=== PATIENT | female | born 1980 | race Caucasian/White ===

== ENCOUNTER 2016-03-26 11:21 | Emergency (ER) | payer SELFPAY ==
[2016-03-26 11:35] VITALS: TEMP 98.4; BMI 33.5
[2016-03-26] MEDS ORDERED: SODIUM CHLORIDE 0.9% 3 ML FLUSH FLUSH PRN (11:51)
[2016-03-26] MEDS ORDERED: METHYLPREDNISOLONE 125 MG/2 ML VIAL IV ONE (12:08)
[2016-03-26] MEDS ORDERED: LORAZEPAM 1 MG TAB PO ONE (12:08)
[2016-03-26] MEDS ORDERED: Albuterol/Ipratropium Neb 3 ML NEB NEB ONE (12:08)
--- NOTE | 2016-03-26 12:11 | EDPRACDOC ---
- General Information Chief Complaint: Dyspnea/Resp distress Stated Complaint: SHORTNESS OF BREATH Time Seen by Provider: 03/26/16 11:51 Information Source: Patient Home Medications: Home Medications Emtricitabine/Tenofovir [Truvada 200 mg-300 mg Tablet] 1 tab PO DAILY 01/09/15 Ritonavir [Norvir] 100 mg PO QHS 01/09/15 Atazanavir Sulfate [Reyataz] 300 mg PO DAILY 10/24/15 Gabapentin [Neurontin] 400 mg PO Q6H #30 capsule 03/04/16 Quetiapine Fumarate [Seroquel] 400 mg PO QHS #7 tablet 03/04/16 Azithromycin [Zithromax] 0 mg PO DAILY #6 tablet 03/26/16 Gabapentin 400 mg PO QID #20 cap 03/26/16 Prednisone [Sterapred Ds] 10 mg PO DIR #21 pack 03/26/16 Quetiapine Fumarate [Seroquel] 400 mg PO QHS #7 tablet 03/26/16 Allergies/Adverse Reactions: Allergies Allergy/AdvReac Type Severity Reaction Status Date / Time No Known Allergies Allergy Verified 03/26/16 11:29 - History of Present Illness Onset: 2-3 DAYS HPI: PT STATES COUGH CONGESTION SOB FEELS SHAKY ALL OVER STATES STARTED LAT NIGHT AND FEELS LIKE SHE IS HAVING A PANIC ATTACK. PT ALSO STATES SHE IS OUT OF HER SEROQUEL AND GABAPENTIN DUE TO FINANCIAL REASONS. PT ALSO STATES SHE IS OUT OF HER GABAPENTIN AND SEROQUEL. Shortness of Breath: Mild Relevant History: Reports: Other (CHRONIC BRONCHITIS) Cough: Reports: Productive, White, Yellow Rhinorrhea: Reports: None Ear Symptoms: Reports: None SOB Worsens with: Reports: Anxiety, Coughing SOB Improves with: Reports: Nothing Associated Signs and symptoms: Reports: Cough, Other (CONGESTION SOB ANXIOUS) - Treatment Prior to ED Arrival Reported Medications/Treatment [facility] Treatment BLS ED Past Medical History - History Reviewed Yes Nurses notes reviewed and agree except as marked Travel Outside of [place] in the Last 3 Months?: No - Patient Medical History Respiratory History: Reports: Chronic Bronchitis, Pneumonia (1 MONTH AGO (PCP)) GI/ History: Reports: Kidney Stones, Pancreatitis Psychological History: Reports: Anxiety, Schizophrenia, Bipolar Disorder. Denies: Depression Systemic History: Reports: HIV (ON MEDS SINCE 11/2014). Denies: Anemia Additional Past Medical History: HIV Surgical History: Reports: Cholecystectomy, Tonsillectomy/Adnoidectomy, Other ( Left ankle orthopedic surgery.) - Family Medical History Reports: Diabetes (BROTHER), Cancer (4 AUNTS). Denies: Hypertension, Stroke, Cardiac Disorders - Social Medical History Smoking Status: Heavy tobacco smoker (5 or more cigarettes/day or daily pipe/ cigar) ETOH: None Substance Abuse: None Lives With: Other Lives In: Home EDM Review of Systems - Review of Systems ROS Negative Except as Marked: Yes All systems reviewed and were negative except as marked Constitutional: No Symptoms Reported. negative: Fever, Chills, Weakness, Fatigue, Loss of Appetite Eyes: No Symptoms Reported. negative: Redness, Blurred Vision, Double Vision, Discharge, Pain, Light Sensitive, Photophobia Ears: No Symptoms Reported. negative: Pain, Hearing Loss, Drainage, Ear Pulling Throat: No Symptoms Reported. negative: Pain, Swelling Nose: No Symptoms Reported. negative: Congestion, Bleeding, Discharge, Injection, Swelling, Deformity, Ecchymosis, Tender, Abrasion, Laceration Mouth: No Symptoms Reported. negative: Pain, Drooling Respiratory: Cough, Shortness of Breath, Sputum. negative: Barky Cough, Brassy Cough, Hemoptysis, Wheezing Cardiovascular: No Symptoms Reported. negative: Chest Pain, Palpitations, Syncope, Edema, Orthopnea, PND, Skin Mottling, Cyanosis Gastrointestinal: No Symptoms Reported. negative: Pain, Constipation, Nausea, Vomiting, Diarrhea, Melena, Formula Intolerance Genitourinary: No Symptoms Reported. negative: Dysuria, Hematuria, Frequency, Discharge, Bleeding, Testicular Pain, Neurological: No Symptoms Reported. negative: Headache, Dizziness, Seizure, Numbness, Weakness, Speech Difficulty, Gait Difficulty Musculoskeletal: No Symptoms Reported. negative: Neck, Chestwall, Ribs, Back, Shoulder, Arm, Elbow, Forearm, Wrist, Hand, Pelvis, Hip, Femur, Knee, Leg, Ankle , Foot Integumentary: No Symptoms Reported. negative: Itching, Rash, Bruising, Wound Allergic/Immunologic: No Symptoms Reported. negative: Hives, Itching Hematologic: No Symptoms Reported. negative: Lymphadenopathy, Easy Bruising, Easy Bleeding Endocrine: No Symptoms Reported. negative: Weight Gain, Weight Loss Psychiatric: Anxiety. negative: Depression, Hallucinations, Insomnia, Suicidal - Physical Exam Constitutional: No apparent distress, Alert (Awake) Oriented to: Time, Person, Place Last recorded Vital Signs: Last Vital Signs Temp 98.4 F 03/26/16 11:30 Pulse 93 03/26/16 11:30 Resp 18 03/26/16 11:30 BP 123/65 03/26/16 11:30 Pulse Ox 92 03/26/16 11:30 Oxygen Pulse Oxygen Saturation 92 O2 Device Room Air Oxygen Flow Rate Fraction of Inspired Oxygen ( FIO2) - HEENT Head: Normal ( normocephalic) Eye Exam: Normal (PERRL, EOMI, Sclera white) Oropharynx: Normal (Pharynx:Moist without exudate,Gums-no swelling) Tympanic Membrane: Normal ENT EAC: Normal TMJ: Normal Nose: No Symptoms Reported (septum midline) Neck: Normal (FROM, trachea at midline) - Respiratory/Cardiovascular Respiratory: Rhonchi, Wheezes Cardiovascular: Normal (RRR without murmur, gallop or rub) - GI Auscultation: Normal (NABS) Palpation: Normal (Soft,No rebound or guarding, non distended) Tenderness: Non tender Eduardo's Sign: Negative - Bladder: Normal - Musculoskeletal Back: Normal (Non-Tender) Extremities: Normal (Normal tone, Pulses 2+ No cyanosis or edema, FROM) - Integumentary Skin: Normal, Warm, Dry Lymphatics: Normal (no adenopathy) - Neurologic Memory Impaired: Normal Motor Function: Normal (Normal tone, Pulses 2+ No cyanosis or edema, FROM) Cranial Nerve: Normal (CN II-X11 intact sensation, strength 5/5) Cerebellar: Normal Mood Description: Normal Perception: Normal ED SOB MDM - Differential Diagnosis Differential Diagnosis: Asthma, Pnuemonia, Other (ACUTE EXACERBATION OF CHRONIC BRONCHITIS) - Re-evaluation Re-evaluation 1 Re-evaluation Time: 13:52 (PT CURRENTLY LAYING IN BED ON STOMACH PLAYING ON CELL PHONE, APPEARS TO BE FEELING BETTER IN NAD. ) Re-evaluation 2 Re-evaluation Time: 14:01 (PT STATES FEELING BETTER AND IS BREATHING BETTER. ) - Results Result Diagrams: 03/26/16 12:12 03/26/16 12:12 - Diagnostic Imaging CXR Image interpreted by: Radiologist Diagnostic Imaging Comments: IMPRESSION: No active cardiopulmonary disease. - Additional Information Additional Information: OLD LABS REVIEWED WBC CHRONICALLY LOW AND BANDEMIA APPEARS TO BE CHRONIC WELL. Decision Time to Discharge: 14:01 - Departure Disposition: Home Condition: Stable Final Diagnosis: Acute exacerbation of chronic bronchitis, Medication refill, Substance abuse Instructions: Chronic Bronchitis (ED), Medicine Refill (ED), Polysubstance Abuse (ED) Education/Counseling Given To: Patient Education/Counseling Given Regarding: Diagnosis, Treatment, Prognosis, Follow Up Referrals: None,No Provider [Primary Care Provider] - One Week Prescriptions: Quetiapine Fumarate [Seroquel] 400 mg PO QHS #7 tablet Azithromycin [Zithromax] 0 mg PO DAILY #6 tablet Gabapentin 400 mg PO QID #20 cap Prednisone [Sterapred Ds] 10 mg PO DIR #21 pack Additional Instructions: RETURN FOR WORSE OR DIFFERENT SYMPTOMS.
[2016-03-26 12:20] LABS: MPV 9.2 fL (7.4-10.4)
[2016-03-26 12:38] LABS: ALL NEG? NO
[2016-03-26 12:49] LABS: LEUKOCYTES/URINE TRACE (NEGATIVE); NITRITE/URINE NEG (NEGATIVE); RBC/URINE 0-2 (0-5); URINE OCCULT BLOOD 2+ (NEG/TRACE)
[2016-03-26 12:51] LABS: MDMA* NEG (NEGATIVE); METHAMPHETAMINES NEG (NEGATIVE); OXYCODONE *POSITIVE* (NEGATIVE)
--- NOTE | 2016-03-26 13:09 | DIRPT ---
CLINICAL DATA: Cough and short of breath since last night EXAM: CHEST 2 VIEW COMPARISON: 01/21/2016 FINDINGS: The heart size and mediastinal contours are within normal limits. Both lungs are clear. The visualized skeletal structures are unremarkable. IMPRESSION: No active cardiopulmonary disease. Electronically Signed By: Ganesh Franks M.D. On: 03/26/2016 13:06
[2016-03-26 13:34] LABS: SEG NEUTROPHIL 42 % (45-76)
[2016-03-26 14:31] LABS: BLOOD UREA NITROGEN 12 MG/DL (7-17); CALCIUM 9.4 MG/DL (8.4-10.2); CALCULATED OSMOLALITY 282 MOs/Kg (270-290); CHLORIDE 110 mEq/L (98-107); GLUCOSE 113 MG/DL (70-99); SODIUM LEVEL 146 mEq/L (137-146); TOTAL PROTEIN 9.2 G/DL (6.3-8.2)
[2016-03-26 14:42] VITALS: BP 119/62; PULSE 101
[2016-03-26] MEDS ORDERED: SODIUM CHLORIDE 0.9% 3 ML FLUSH FLUSH SCH (18:00)
== END 2016-03-26 14:40 | disposition home or self-care (01) ==
LOC: ED 11:21
DX: J44.1 Chronic obstructive pulmonary disease with (acute) exacerbation (principal); F19.10 Other psychoactive substance abuse, uncomplicated; F41.9 Anxiety disorder, unspecified; F31.9 Bipolar disorder, unspecified; F20.9 Schizophrenia, unspecified; B20 Human immunodeficiency virus [HIV] disease; F17.210 Nicotine dependence, cigarettes, uncomplicated; Z76.0 Encounter for issue of repeat prescription; Z79.899 Other long term (current) drug therapy
CPT/HCPCS: 36415; 71020; 80053; 80307; 81001; 85007; 85027; 87040; 87077; 87086; 87186; 94640; 96374; 99283; J2930; J3490; J7620

== ENCOUNTER 2016-03-28 18:39 | Emergency (ER) | payer SELFPAY ==
[2016-03-28 18:40] VITALS: BMI 33.5
--- NOTE | 2016-03-28 19:17 | DIRPT ---
CLINICAL DATA: Fever and cough EXAM: CHEST 2 VIEW COMPARISON: 03/26/2016 FINDINGS: Normal heart size. Clear lungs. No pleural effusion or pneumothorax. IMPRESSION: No active cardiopulmonary disease. Electronically Signed By: Ganesh Franks M.D. On: 03/28/2016 19:14
[2016-03-28 20:39] LABS: LEUKOCYTES/URINE NEG (NEGATIVE); RBC/URINE 0-2 (0-5); URINE OCCULT BLOOD NEG (NEG/TRACE)
[2016-03-28 20:40] LABS: NITRITE/URINE POS (NEGATIVE)
[2016-03-28] MEDS ORDERED: CEFTRIAXONE 1 GM in D5W 100 ML IV ONE (20:40)
[2016-03-28 20:43] LABS: MPV 9.8 fL (7.4-10.4)
[2016-03-28 20:58] LABS: BLOOD UREA NITROGEN 28 MG/DL (7-17); CALC CORRECTED 9.2 MG/DL (8.4-10.2); CALCIUM 9.1 MG/DL (8.4-10.2); CALCULATED OSMOLALITY 280 MOs/Kg (270-290); CHLORIDE 106 mEq/L (98-107); GLUCOSE 83 MG/DL (70-99); SODIUM LEVEL 143 mEq/L (137-146); TOTAL PROTEIN 7.9 G/DL (6.3-8.2)
[2016-03-28] MEDS ORDERED: ACETAMINOPHEN 325 MG/TAB TABLET PO ONE (21:06)
--- NOTE | 2016-03-28 21:07 | EDPRACDOC ---
- General Information Chief Complaint: Fever Stated Complaint: FEVER Time Seen by Provider: 03/28/16 19:45 Information Source: Patient Mode of Arrival: Ambulance Home Medications: Home Medications Emtricitabine/Tenofovir [Truvada 200 mg-300 mg Tablet] 1 tab PO DAILY 01/09/15 Ritonavir [Norvir] 100 mg PO QHS 01/09/15 Atazanavir Sulfate [Reyataz] 300 mg PO DAILY 10/24/15 Azithromycin [Zithromax] 0 mg PO DAILY #6 tablet 03/26/16 Gabapentin 400 mg PO QID #20 cap 03/26/16 Hydroxyzine Pamoate [Vistaril] 25 - 50 mg PO Q6 #10 capsule 03/26/16 Prednisone [Sterapred Ds] 10 mg PO DIR #21 pack 03/26/16 Quetiapine Fumarate [Seroquel] 400 mg PO QHS #7 tablet 03/26/16 Levofloxacin [Levaquin] 750 mg PO DAILY #7 tablet 03/28/16 Allergies/Adverse Reactions: Allergies Allergy/AdvReac Type Severity Reaction Status Date / Time No Known Allergies Allergy Verified 03/28/16 18:47 - History of Present Illness Onset: 03/26/15 HPI: PT PRESENTS FOR FEVER WHICH WAS 104 EARLIER. STATES SHE TOOK 4 ADVIL FITTER TYPE BAR AND SEGMENT. PT STATES SHE HAS GENERALIZED BODY ACHES. DENIES NAUSEA OR VOMITING. Relevant History: Reports: Immunosuppression Treated Infection: Antibiotic Improves With: Reports: Ibuprofen, Tylenol Symptoms: Reports: Chills, Myalgia ED Past Medical History - History Reviewed Yes Nurses notes reviewed and agree except as marked - Patient Medical History Respiratory History: Reports: Asthma, Chronic Bronchitis, Pneumonia (1 MONTH AGO (PCP)) GI/ History: Reports: Kidney Stones, Pancreatitis Psychological History: Reports: Anxiety, Schizophrenia, Bipolar Disorder. Denies: Depression Systemic History: Reports: HIV (ON MEDS SINCE 11/2014). Denies: Anemia Additional Past Medical History: HIV Surgical History: Reports: Cholecystectomy, Tonsillectomy/Adnoidectomy, Other ( Left ankle orthopedic surgery.) - Family Medical History Reports: Diabetes (BROTHER), Cancer (4 AUNTS). Denies: Hypertension, Stroke, Cardiac Disorders - Social Medical History Smoking Status: Heavy tobacco smoker (5 or more cigarettes/day or daily pipe/ cigar) EDM Review of Systems - Review of Systems ROS Negative Except as Marked: Yes All systems reviewed and were negative except as marked - Physical Exam Constitutional: Alert Oriented to: Time, Person, Place Last recorded Vital Signs: Last Vital Signs Temp 102.5 F H 03/28/16 18:47 Pulse 99 03/28/16 18:47 Resp 22 03/28/16 18:47 BP 141/72 03/28/16 18:47 Pulse Ox 97 03/28/16 18:47 Oxygen Pulse Oxygen Saturation 97 O2 Device Room Air Oxygen Flow Rate Fraction of Inspired Oxygen ( FIO2) - HEENT Head: Normal ( normocephalic) Eye Exam: Normal (PERRL, EOMI, Sclera white) Oropharynx: Normal (Pharynx:Moist without exudate,Gums-no swelling) Nose: No Symptoms Reported (septum midline) Neck: Normal (FROM, trachea at midline) - Respiratory/Cardiovascular Respiratory: Normal - CTA (BBS clear to auscultation without adventitious sounds ) Cardiovascular: Normal (RRR without murmur, gallop or rub) - GI Auscultation: Normal (NABS) Palpation: Normal (Soft,No rebound or guarding, non distended) Tenderness: Non tender Eduardo's Sign: Negative Rectal Exam: Deferred - Musculoskeletal Back: Normal (Non-Tender) Extremities: Normal (Normal tone, Pulses 2+ No cyanosis or edema, FROM) - Integumentary Skin: Normal, Warm, Dry Lymphatics: Normal (no adenopathy) - Neurologic Memory Impaired: Normal Motor Function: Normal (Normal tone, Pulses 2+ No cyanosis or edema, FROM) Cranial Nerve: Normal (CN II-X11 intact sensation, strength 5/5) Cerebellar: Normal Mood Description: Normal Perception: Normal - Differential Diagnosis Influenza, UTI - Results 03/28/16 20:33 03/28/16 20:33 WBC 2.7 xk/uL (3.8-10.8) L 03/28/16 20:33 RBC 3.01 xM/uL (4.20-5.40) L 03/28/16 20:33 Hgb 11.0 g/dL (12.0-16.0) L 03/28/16 20:33 Hct 31.9 % (36-47) L 03/28/16 20:33 MCV 106 fL (81-99) H 03/28/16 20:33 MCH 36.6 pg (27-32) H 03/28/16 20:33 MCHC 34.5 g/dl (33-36) 03/28/16 20:33 RDW 14.9 % (11.5-14.5) H 03/28/16 20:33 Plt Count 129 xk/uL (130-400) L 03/28/16 20:33 MPV 9.8 fL (7.4-10.4) 03/28/16 20:33 Urine Color Yellow 03/28/16 20:25 Urine Clarity Clear 03/28/16 20:25 Urine pH 6.0 (5.0-8.0) 03/28/16 20:25 Ur Specific [place] 1.015 (1.003-1.035) 03/28/16 20:25 Urine Protein 1+ (NEG/TRACE) H 03/28/16 20:25 Urine Glucose (UA) Trace (NEGATIVE) 03/28/16 20:25 Urine Ketones Neg (NEGATIVE) 03/28/16 20:25 Urine Occult Blood Neg (NEG/TRACE) 03/28/16 20:25 Urine Nitrite Pos (NEGATIVE) H 03/28/16 20:25 Urine Bilirubin Neg (NEGATIVE) 03/28/16 20:25 Urine Urobilinogen <2.0 MG/DL (0-1) 03/28/16 20:25 Ur Leukocyte Esterase Neg (NEGATIVE) 03/28/16 20:25 Urine RBC 0-2 (0-5) 03/28/16 20:25 Urine WBC 2-5 (0-5) 03/28/16 20:25 Ur Epithelial Cells 2+ 03/28/16 20:25 Urine Bacteria Few (NEG/FEW) 03/28/16 20:25 Hyaline Casts 0-2 (0-2) 03/28/16 20:25 Urine Mucus Occ (NEG/OCC) 03/28/16 20:25 Urine Test Neg (NEGATIVE) 03/28/16 20:25 Microbiology 03/28/16 20:02 Influenza Type A Antigen Screen - Final N/P - Naso/Pharyngeal NEGATIVE Please note: A NEGATIVE result does not exclude an influenza virus infection. It is a presumptive result and, if required, confirmation should be done using either a virus culture or an FDA-cleared influenza A&B molecular assay. ("NORMAL" value = "NEGATIVE".) Influenza Type B Antigen Screen - Final NEGATIVE Please note: A NEGATIVE result does not exclude an influenza virus infection. It is a presumptive result and, if required, confirmation should be done using either a virus culture or an FDA-cleared influenza A&B molecular assay. ("NORMAL" value = "NEGATIVE".) Lab Results 03/28/16 03/28/16 03/28/16 20:33 20:25 20:25 WBC 2.7 L RBC 3.01 L Hgb 11.0 L Hct 31.9 L MCV 106 H MCH 36.6 H MCHC 34.5 RDW 14.9 H Plt Count 129 L MPV 9.8 Urine Color Yellow Urine Clarity Clear Urine pH 6.0 Ur Specific [place] 1.015 Urine Protein 1+ H Urine Glucose (UA) Trace Urine Ketones Neg Urine Occult Blood Neg Urine Nitrite Pos H Urine Bilirubin Neg Urine Urobilinogen <2.0 Ur Leukocyte Esterase Neg Urine RBC 0-2 Urine WBC 2-5 Ur Epithelial Cells 2+ Urine Bacteria Few Hyaline Casts 0-2 Urine Mucus Occ Urine Test Neg Decision Time to Discharge: 21:33 - Departure Disposition: Home Condition: Stable Final Diagnosis: Urinary tract infectious disease Instructions: Urinary Tract Infection in Women (ED) Education/Counseling Given To: Patient Education/Counseling Given Regarding: Diagnosis, Treatment, Prognosis, Follow Up Referrals: Vicente Moreno II, MD [Staff Physician] - One Week Prescriptions: Levofloxacin [Levaquin] 750 mg PO DAILY #7 tablet Additional Instructions: INCREASE FLUID INTAKE. FOLLOW UP WITH PRIMARY CARE PROVIDER NEXT WEEK. TAKE ALL ANTIBIOTICS PRESCRIBED. RETURN TO THE ED FOR WORSENING SYMPTOMS OR CONCERNS.
[2016-03-28 21:15] LABS: SEG NEUTROPHIL 43 % (45-76)
[2016-03-28 21:58] VITALS: BP 130/72; PULSE 101; TEMP 99.3
== END 2016-03-28 21:55 | disposition home or self-care (01) ==
LOC: ED 18:39
DX: N39.0 Urinary tract infection, site not specified (principal); B20 Human immunodeficiency virus [HIV] disease; J45.909 Unspecified asthma, uncomplicated; F41.9 Anxiety disorder, unspecified; F20.9 Schizophrenia, unspecified; F31.9 Bipolar disorder, unspecified; F17.200 Nicotine dependence, unspecified, uncomplicated; Z79.899 Other long term (current) drug therapy
CPT/HCPCS: 36415; 71020; 80053; 81001; 81025; 85007; 85027; 87804; 96365; 99283; J0696; J3490; J7060